=== PATIENT | male | born 1980 | race Two or more races ===

== ENCOUNTER 2018-11-04 11:07 | Emergency (ER) | payer OTHER ==
[~2018-11-04] VITALS: Ht 177.8 cm; Wt 121.6 kg
== END 2018-11-04 14:02 | disposition home or self-care (01) ==
LOC: ER 11:07
DX: S60.052A Contusion of left little finger without damage to nail, initial encounter (principal); W22.8XXA Striking against or struck by other objects, initial encounter; Y93.89 Activity, other specified; Y92.69 Other specified industrial and construction area as the place of occurrence of the external cause; Y99.8 Other external cause status

== ENCOUNTER → 2018-12-23 | Emergency (ER) | payer OTHER ==
[~2018-12-23] VITALS: Ht 177.8 cm; Wt 121.6 kg
== END | disposition left against medical advice (07) ==
LOC: ER 15:46
DX: Z53.20 Procedure and treatment not carried out because of patient's decision for unspecified reasons (principal)

== ENCOUNTER 2021-08-21 11:29 | Emergency (ER) | payer OTHER ==
[~2021-08-21] VITALS: Ht 177.8 cm; Wt 127.0 kg
== END 2021-08-21 15:00 | disposition home or self-care (01) ==
LOC: ER 11:29
DX: M77.51 Other enthesopathy of right foot and ankle (principal)